=== PATIENT | male | born 1985 | race Caucasian/White ===

== ENCOUNTER 2022-08-13 12:54 | Emergency (ER) | payer OTHER ==
[~2022-08-13] VITALS: Ht 167.6 cm; Wt 95.3 kg
[2022-08-13 12:57] VITALS: BP 113/68
--- NOTE | 2022-08-13 13:10 | NUR ---
pt to bed via wheelchair due to feeling dizzy
--- NOTE | 2022-08-13 13:28 | NUR ---
MD BEVERLY AT BEDSIDE FOR EVALUATION
[2022-08-13] MEDS ORDERED: NACL 0.9% 1,000 ML IV ONE (13:35)
--- NOTE | 2022-08-13 13:43 | NUR ---
PT TAKEN TO CT VIA WHEELCHAIR
[2022-08-13 14:10] LABS: BASOPHILS % (AUTO) 0.4 % (0.0-2.0); EOSINOPHILS % (AUTO) 0.1 % (0.0-4.0); HEMATOCRIT 37.6 % (36-52); HEMOGLOBIN 13.1 g/dL (12.0-18.0); LYMPHOCYTES # (AUTO) 0.9 K/uL (2.0-11.5); LYMPHOCYTES % (AUTO) 7.7 % (20.5-51.1); MEAN CORPUSCULAR HEMOGLOBIN 31 pg (27-31); MEAN CORPUSCULAR HGB CONC 35 g/dL (33-37); MEAN CORPUSCULAR VOLUME 88.4 fL (80-94); NEUTROPHILS # (AUTO) 9.6 K/uL (1.8-7.7); NEUTROPHILS % (AUTO) 82.8 % (42.2-75.2); PLATELET COUNT (AUTO) 164 K/uL (140-450); RED BLOOD CELL COUNT(AUTO) 4.26 MIL/uL (4.20-6.10); RED CELL DISTRIBUTION WIDTH 13.4 % (11.6-13.7); WHITE BLOOD COUNT (AUTO) 11.6 K/uL (4.8-10.8)
[2022-08-13] MEDS ORDERED: CEPH-588 PO (14:40)
[2022-08-13] MEDS ORDERED: CHLO473S62 PO (14:40)
[2022-08-13 14:42] LABS: ANION GAP 21.7 (8-16); CARBON DIOXIDE 16.8 mmol/L (21-32); CREATININE 0.7 mg/dL (0.6-1.3); POTASSIUM 3.5 mmol/L (3.5-5.1)
[2022-08-13 15:32] VITALS: BP 122/74
== END 2022-08-13 15:34 | disposition home or self-care (01) ==
LOC: MED 12:54
DX: S01.512A Laceration without foreign body of oral cavity, initial encounter (principal); W18.30XA Fall on same level, unspecified, initial encounter; Y93.89 Activity, other specified; Y92.89 Other specified places as the place of occurrence of the external cause; Y99.8 Other external cause status
CPT/HCPCS: 36415; 70486; 80048; 85025; 93005; 96360; 99285; J7030

== ENCOUNTER 2023-09-02 15:11 | Emergency (ER) | payer OTHER ==
[~2023-09-02] VITALS: Ht 167.6 cm; Wt 89.8 kg
[~2023-09-02 15:11] MED LIST: CEPH-588 PO; CHLO473S62 PO
[2023-09-02 15:33] VITALS: BP 138/73; PULSE 86; RESP 18; TEMP 97.1; O2SAT 98
[2023-09-02] MEDS ORDERED: NAPR-54 PO (15:58)
[2023-09-02] MEDS ORDERED: METH4TAB1 PO (15:58)
[2023-09-02] MEDS ORDERED: TRAM-748 PO (15:58)
[2023-09-02] MEDS: KETOROLAC 30 MG/ML VIAL IM ONE (16:07)
== END 2023-09-02 16:23 | disposition home or self-care (01) ==
LOC: MED 15:11
DX: G62.9 Polyneuropathy, unspecified (principal); Z79.899 Other long term (current) drug therapy
CPT/HCPCS: 96372; 99283; J1885